=== PATIENT | male | born 1965 | race Caucasian/White ===

== ENCOUNTER 2020-12-03 08:18 | Outpatient (REF) | payer MEDICARE, MEDICAID, SELFPAY ==
[2020-12-03 09:02] LABS: Ammonia 60 umol/L (13-55)
[2020-12-03 09:13] LABS: Alanine Aminotransferase 18 U/L (0-40); Albumin Level 4.1 g/dL (3.5-5.0); Alkaline Phosphatase 85 U/L (39-117); Aspartate Amino Transferase 24 U/L (5-37); Bilirubin Direct < 0.2 mg/dL (0.0-0.5); Bilirubin Total 0.2 mg/dL (0.0-1.0); Total Protein 6.7 g/dL (6.5-8.0)
[2020-12-03 09:17] LABS: Valproate 56.6 mcg/mL (50.0-100.0)
== END 2020-12-03 08:19 | disposition home or self-care (01) ==
LOC: HO.LAB 08:18
PROVIDERS: PCP Hospitalist; Visit Provider General Practice
DX: Z79.899 Other long term (current) drug therapy (principal)
CPT/HCPCS: 36415; 80076; 80164; 82140

== ENCOUNTER 2021-12-16 09:45 | Outpatient (REF) | payer MEDICARE, MEDICAID, SELFPAY ==
[2021-12-16 10:52] LABS: Alanine Aminotransferase 19 U/L (0-40); Albumin Level 4.2 g/dL (3.5-5.0); Alkaline Phosphatase 88 U/L (39-117); Aspartate Amino Transferase 25 U/L (5-37); Bilirubin Direct < 0.2 mg/dL (0.0-0.5); Bilirubin Total 0.3 mg/dL (0.0-1.0); Total Protein 6.8 g/dL (6.5-8.0); Valproate 61.1 mcg/mL (50.0-100.0)
== END 2021-12-16 09:46 | disposition home or self-care (01) ==
LOC: HO.LAB 09:45
PROVIDERS: Visit Provider General Practice
DX: Z79.899 Other long term (current) drug therapy (principal)
CPT/HCPCS: 36415; 80076; 80164

== ENCOUNTER 2022-02-28 09:11 | Outpatient (REF) | payer MEDICARE, MEDICAID, SELFPAY ==
--- NOTE | 2022-03-02 10:00 | MHC.AU.ANR ---
Adult Audiological Evaluation Date of Visit: 03/02/22 Reason for Appointment: History of mild to moderate hearing loss. Patient arrives today to determine if there has been a change in hearing. Patient feels he hears well at home. Has hearing been tested previously?: Yes Previous Hearing Test Results: At this clinic on 07/31/2019- Left: Mild rising to normal and sloping to moderately-severe sensorineural hearing loss, Right: Moderate rising to normal and sloping to moderate sensorineural hearing loss Ear History: Recent Ear Drainage: None Reported Recent Ear Pain: None Reported Recent Ear Infections: None Reported Medical History: Medical History: Developmental Delay, Schizophrenia, GERD Otoscopy: Right Ear: Unremarkable Left Ear: Partially occluded with cerumen Tympanometry: Tympanometry performed due to: To assess integrity of the middle ear system Right Ear: Normal Middle Ear System (Type A) Left Ear: Reduced Middle Ear Compliance (Type As) Hearing Evaluation: Transducer(s) Used: Insert Earphones Method: Conventional Audiometry Stimuli Used: Pure Tones Right Ear: Description of Hearing: Mild rising to normal and sloping to moderate sensorineural hearing loss Left Ear: Description of Hearing: Moderate rising to normal and sloping to moderately-severe sensorineural hearing loss Speech Recognition Threshold (SRT): Method Used: Monitored Live Voice Stimuli Used: Spondee Words Right Ear: 20 dBHL Left Ear: 25 dBHL Word Discrimination: Method: Recorded Lists Word Lists Used: W-22 Right Ear: 100% at 60 dBHL Left Ear: 100% at 65 dBHL Comparison: Compared to the most recent evaluation: Hearing is stable. Recommendations: Audiological re-evaluation in one year. Patient reports he is hearing adequately well at home. He lives in a retirement setting. His word discrimination in quiet at a normal conversational volume is excellent. At this time, hearing aids may not yet be warranted. Diagnosis: Primary Diagnosis: H90.3 Bilateral Sensorineural Hearing Loss Signature: Provider: Levon Dong, [facility]
--- NOTE | 2022-03-03 13:39 | MHC.AU.ANR ---
Adult Audiological Evaluation Date of Visit: 02/28/22 Reason for Appointment: History of mild to moderate hearing loss. Patient arrives today to determine if there has been a change in hearing. Patient feels he hears well at home. Has hearing been tested previously?: Yes Previous Hearing Test Results: At this clinic on 07/31/2019- Left: Mild rising to normal and sloping to moderately-severe sensorineural hearing loss, Right: Moderate rising to normal and sloping to moderate sensorineural hearing loss Ear History: Recent Ear Drainage: None Reported Recent Ear Pain: None Reported Recent Ear Infections: None Reported Medical History: Medical History: Developmental Delay, Schizophrenia, GERD Otoscopy: Right Ear: Unremarkable Left Ear: Partially occluded with cerumen Tympanometry: Tympanometry performed due to: To assess integrity of the middle ear system Right Ear: Normal Middle Ear System (Type A) Left Ear: Reduced Middle Ear Compliance (Type As) Hearing Evaluation: Transducer(s) Used: Insert Earphones Method: Conventional Audiometry Stimuli Used: Pure Tones Right Ear: Description of Hearing: Mild rising to normal and sloping to moderate sensorineural hearing loss Left Ear: Description of Hearing: Moderate rising to normal and sloping to moderately-severe sensorineural hearing loss Speech Recognition Threshold (SRT): Method Used: Monitored Live Voice Stimuli Used: Spondee Words Right Ear: 20 dBHL Left Ear: 25 dBHL Word Discrimination: Method: Recorded Lists Word Lists Used: W-22 Right Ear: 100% at 60 dBHL Left Ear: 100% at 65 dBHL Comparison: Compared to the most recent evaluation: Hearing is stable. Recommendations: Audiological re-evaluation in one year. Patient reports he is hearing adequately well at home. He lives in a [facility] setting. His word discrimination in quiet at a normal conversational volume is excellent. At this time, hearing aids may not yet be warranted. Diagnosis: Primary Diagnosis: H90.3 Bilateral Sensorineural Hearing Loss Signature: Provider: Levon Dong, [facility]
== END 2022-02-28 09:12 | disposition home or self-care (01) ==
LOC: HO.SH 09:11
PROVIDERS: Visit Provider Physician Assistant
DX: Z01.118 Encounter for examination of ears and hearing with other abnormal findings (principal); H90.3 Sensorineural hearing loss, bilateral
CPT/HCPCS: 92557; 92567

== ENCOUNTER 2023-04-20 07:34 | Outpatient (REF) | payer MEDICARE, MEDICAID, SELFPAY ==
[2023-04-20 09:52] LABS: Valproate 56.4 mcg/mL (50.0-100.0)
[2023-04-20 09:56] LABS: Alanine Aminotransferase 19 U/L (0-40); Alkaline Phosphatase 87 U/L (39-117); Aspartate Amino Transferase 25 U/L (5-37); Bilirubin Direct 0.1 mg/dL (0.0-0.5); Bilirubin Total 0.3 mg/dL (0.0-1.0); Total Protein 6.7 g/dL (6.5-8.0)
== END 2023-04-20 07:35 | disposition home or self-care (01) ==
LOC: HO.LAB 07:34
PROVIDERS: Visit Provider General Practice
DX: Z79.899 Other long term (current) drug therapy (principal)
CPT/HCPCS: 36415; 80076; 80164

== ENCOUNTER 2023-05-12 12:54 | Outpatient (REF) | payer MEDICARE, MEDICAID, SELFPAY | END 2023-05-12 12:55 | disposition home or self-care (01) | LOC: HO.SH 12:54 | PROVIDERS: Visit Provider Physician Assistant | DX: H90.3 Sensorineural hearing loss, bilateral (principal) | CPT/HCPCS: 92557; 92567; 92588 ==

== ENCOUNTER 2024-04-23 10:20 | Outpatient (REF) | payer MEDICARE, MEDICAID, SELFPAY ==
--- NOTE | 2024-04-23 10:57 | MHC.AUDCO ---
Anson is here for evaluation, accompanied by [facility] staff Josi. Anson reports his hearing feels stable. Josi notes it has been harder to get his attention lately. Some asks for repetition noted. Otologic concerns denied. Stable health reported. Otoscopy within normal Ad, visually occluding cerumen As. Tympanograms within normal Ad. Flat with small volume As- consisetent with occluding cerumen. Recommended cerumen removal As, return to complete audiogram following cerumen removal.
== END 2024-04-23 10:21 | disposition home or self-care (01) ==
LOC: HO.SH 10:20
PROVIDERS: Visit Provider Physician Assistant
DX: Z01.118 Encounter for examination of ears and hearing with other abnormal findings (principal); H61.22 Impacted cerumen, left ear
CPT/HCPCS: 92567

== ENCOUNTER 2024-06-03 08:35 | Outpatient (REF) | payer MEDICARE, MEDICAID, SELFPAY | END 2024-06-03 08:36 | disposition home or self-care (01) | LOC: HO.SH 08:35 | PROVIDERS: Visit Provider Physician Assistant | DX: Z01.118 Encounter for examination of ears and hearing with other abnormal findings (principal); H90.3 Sensorineural hearing loss, bilateral | CPT/HCPCS: 92552; 92555; 92567 ==

== ENCOUNTER 2024-07-16 15:59 | Outpatient (REF) | payer MEDICARE, MEDICAID, SELFPAY ==
[2024-07-16 17:24] LABS: Valproate 54.2 mcg/mL (50.0-100.0)
[2024-07-16 17:28] LABS: Alanine Aminotransferase 15 U/L (0-40); Albumin Level 4.2 g/dL (3.5-5.0); Alkaline Phosphatase 82 U/L (39-117); Aspartate Amino Transferase 20 U/L (5-37); Bilirubin Direct < 0.2 mg/dL (0.0-0.5); Bilirubin Total 0.2 mg/dL (0.0-1.0)
== END 2024-07-16 16:00 | disposition home or self-care (01) ==
LOC: HO.LAB 15:59
PROVIDERS: Visit Provider General Practice
DX: F29 Unspecified psychosis not due to a substance or known physiological condition (principal); Z79.899 Other long term (current) drug therapy
CPT/HCPCS: 36415; 80076; 80164

== ENCOUNTER 2025-03-10 12:51 | Outpatient (REF) | payer MEDICARE, MEDICAID, SELFPAY | END 2025-03-10 12:52 | disposition home or self-care (01) | LOC: HO.SH 12:51 | PROVIDERS: PCP Hospitalist; Visit Provider Physician Assistant | DX: Z01.118 Encounter for examination of ears and hearing with other abnormal findings (principal); H90.3 Sensorineural hearing loss, bilateral | CPT/HCPCS: 92552; 92556 ==